=== PATIENT | female | born 1960 | race Caucasian/White ===

== ENCOUNTER 2023-05-30 11:36 | Emergency (ER) | payer OTHER ==
[~2023-05-30] VITALS: Ht 162.6 cm; Wt 73.9 kg
[2023-05-30] MEDS ORDERED: CANDESARTAN-HC1 EAC1 PO (11:43)
[2023-05-30] MEDS ORDERED: AMLODIPINE-OLM1 EAC2 PO (11:43)
[2023-05-30] MEDS ORDERED: TOPROL XL50 M1 PO (11:43)
[2023-05-30] MEDS ORDERED: CRESTOR10 MG PO (11:43)
== END 2023-05-30 15:13 | disposition home or self-care (01) ==
LOC: ER 11:37
DX: F41.9 Anxiety disorder, unspecified (principal); I10 Essential (primary) hypertension; Z91.013 Allergy to seafood